=== PATIENT | female | born 1955 | race Caucasian/White ===

== ENCOUNTER 2018-07-02 09:50 | Emergency (ER) | payer SELFPAY ==
[~2018-07-02] VITALS: Ht 167.6 cm; Wt 122.5 kg
[2018-07-02] MEDS ORDERED: ASPIRIN 81 MG CHEW TAB PO STA (10:58)
[2018-07-02] MEDS ORDERED: CLONIDINE HCL 0.2 MG TAB PO ONE (11:00)
[2018-07-02 12:05] LABS: BILIRUBIN,URINE NEGATIVE (NEGATIVE); CLARITY,URINE SL CLOUDY (CLEAR); COLOR,URINE YELLOW (YELLOW); KETONES,URINE NEGATIVE (NEGATIVE); LEUKOCYTE ESTERASE ,URINE NEGATIVE (NEGATIVE); NITRITE,URINE NEGATIVE (NEGATIVE); PROTEIN,URINE DIPSTICK 1+ (NEGATIVE); URINE UROBILINOGEN 0.2 mg/dL (0.2 - 1)
[2018-07-02 12:19] LABS: BACTERIA,URINE MODERATE /HPF; EPITHELIAL CELLS,URINE MODERATE /LPF; TRANSITIONAL EPI CELLS,URINE FEW
--- NOTE | 2018-07-02 12:34 | Diagnostic Imaging Report ---
EXAM: XR CHEST 1 VIEW DATE: 07/02/2018 10:58 AM INDICATION: Cough COMPARISON: None FINDINGS: Lines and Tubes: None Heart and Mediastinum: No acute cardiomediastinal findings. Lungs and Pleura: No significant pleural effusion, pneumothorax, or focal consolidation. Minimal opacities in the lung bases statistically represent atelectasis, however, infectious process could have a similar appearance. Bones and Soft Tissues: No acute findings. IMPRESSION: 1. No acute cardiopulmonary findings. Signed by: Dr. Parth Tapia MD on 07/02/2018 12:31 PM
[2018-07-02 13:13] LABS: BASOPHILS % 0.5 % (0.0-1.0); EOSINOPHILS # (AUTO) 0.2 (0.0-0.4); EOSINOPHILS % 2.6 % (0.0-6.0); HEMATOCRIT 48.1 % (34.2-44.1); HEMOGLOBIN 15.7 g/dL (12.0-16.0); LYMPHOCYTES # (AUTO) 1.7 (1.0-3.2); LYMPHOCYTES % 20.8 % (18.0-39.1); MEAN CORPUSCULAR HEMOGLOBIN 28.6 pg (28-32); MEAN CORPUSCULAR HGB CONC 32.6 g/dL (31-35); MEAN CORPUSCULAR VOLUME 87.6 fL (81-99); MONOCYTES # (AUTO) 0.5 (0.2-0.8); MONOCYTES % 6.3 % (4.4-11.3); NEUTROPHILS # (AUTO) 5.6 (2.1-6.9); NEUTROPHILS % 69.2 % (38.7-80.0); PLATELET COUNT 126 x10e3/uL (140-360); RED BLOOD COUNT 5.49 x10e6/uL (3.6-5.1); RED CELL DISTRIBUTION WIDTH 14.7 % (11.7-14.4)
[2018-07-02 13:22] LABS: INR 0.93; PROTHROMBIN TIME 13.3 seconds (11.9-14.5)
[2018-07-02 13:23] LABS: PARTIAL THROMBOPLASTIN TIME 26.7 seconds (23.8-35.5)
[2018-07-02 13:31] LABS: ALBUMIN 3.4 g/dL (3.5-5.0); ALBUMIN/GLOBULIN RATIO 1.2 (0.8-2.0); ANION GAP 12.8 mmol/L (8-16); CALCIUM 8.8 mg/dL (8.4-10.2); CREATININE, SERUM 1.1 mg/dL (0.57-1.11); MAGNESIUM 1.7 MG/DL (1.3-2.1); POTASSIUM 3.8 mmol/L (3.5-5.1)
[2018-07-02 13:43] LABS: CREATINE KINASE MB 2.5 ng/mL (0-5.0)
[2018-07-02] MEDS ORDERED: HYDRALAZINE HCL 20 MG/ML VIAL IV ONE (13:53)
[2018-07-02] MEDS ORDERED: CEFTRIAXONE SOD 1 GM VIAL IV ONE (14:00)
[2018-07-02] MEDS ORDERED: KEFLEX500 MG PO (14:03)
[2018-07-02] MEDS ORDERED: HYDROCHLOROTHIA25 MG PO (14:04)
[2018-07-02 15:38] VITALS: BP 163/106
[2018-09-18] MEDS ORDERED: LOPRESSOR25 MG PO (07:02)
[2018-09-18] MEDS ORDERED: CEFUROXIME250 MG PO (07:02)
[2018-09-18] MEDS ORDERED: LORATADINE10 MG PO (07:02)
[2018-09-18] MEDS ORDERED: FAMOTIDINE20 MG PO (07:02)
[2018-09-18] MEDS ORDERED: PREDNISONE20 MG PO (07:02)
[2018-09-18] MEDS ORDERED: Guaifenesin/Dextromethorphan NG (07:02)
[2018-09-18] MEDS ORDERED: NICODERM CQ1 EAC1 TOP (07:02)
[2018-09-18] MEDS ORDERED: NIFEDIPINE ER30 M1 PO (07:02)
[2018-09-18] MEDS ORDERED: HYDRALAZINE HCL25 MG PO (07:02)
[2018-09-18] MEDS ORDERED: TESSALON PERLE100 MG PO (07:02)
[2018-09-18] MEDS ORDERED: PROAIR HFA INH8.5 GM INH (07:04)
== END 2018-07-02 15:39 | disposition home or self-care (01) ==
LOC: ER 09:50
DX: N30.01 Acute cystitis with hematuria (principal); R05 Cough; I10 Essential (primary) hypertension; T46.5X6A Underdosing of other antihypertensive drugs, initial encounter; Z91.120 Patient's intentional underdosing of medication regimen due to financial hardship; J44.9 Chronic obstructive pulmonary disease, unspecified; E66.9 Obesity, unspecified; Z68.41 Body mass index [BMI] 40.0-44.9, adult; J43.9 Emphysema, unspecified; F17.210 Nicotine dependence, cigarettes, uncomplicated
CPT/HCPCS: 36415; 71045; 80053; 81001; 82550; 82553; 83735; 83880; 84484; 85025; 85610; 85730; 93005; 99284; J0360; J0696

== ENCOUNTER 2018-08-30 12:54 | Inpatient (IN) | payer SELFPAY ==
[~2018-08-30] VITALS: Ht 167.6 cm; Wt 121.1 kg
[2018-08-30] VITALS (15 sets, daily range): BP systolic 148–207; BP diastolic 79–131
[~2018-08-30 12:54] MED LIST: HYDROCHLOROTHIA25 MG PO; KEFLEX500 MG PO
--- OUTSIDE RECORDS SUMMARY | 2018-08-30 12:57 | XMS REPORT ---
Author Author [facility], [place] Address Unknown Phone Unavailable Care Team Providers Care Turbo Electric Operator Name Role Phone Sharon CARMONA Unavailable Unavailable Problems This patient has no known problems. Allergies, Adverse Reactions, Alerts This patient has no known allergies or adverse reactions. Medications This patient has no known medications. Results Test Description Test Time Test Comments Text Results Atomic Results Result Comments CHEST SINGLE (NOT PORTABLE) 2018-07-02 12:31:00 [place] [id number] Patient Name: SHAE ROMERO MR #: [id number] : 1955 Age/Sex: 62/F Req #: [id number] Adm Physician: Ordered by: TYLOR WINCHESTER BOILER/CHILLER TECHNICIAN Report #: [id number] Location: ER Room/Bed: Procedure: [id number] DX/CHEST SINGLE (NOT PORTABLE) Exam Date: 07/02/18 Exam Time: 1148 REPORT STATUS: Signed EXAM: XR CHEST 1 VIEW DATE: 07/02/2018 10:58 AM INDICATION: Cough COMPARISON: None FINDINGS: Lines and Tubes: None Heart and Mediastinum: No acute cardiomediastinal findings. Lungs and Pleura: No significant pleural effusion, pneumothorax, or focal consolidation. Minimal opacities in the lung bases statistically represent atelectasis, however, infectious process could have a similar appearance. Bones and Soft Tissues: No acute findings. IMPRESSION: 1. No acute cardiopulmonary findings. Signed by: Dr. Parth Tapia MD on 07/02/2018 12:31 PM Dictated By: PARTH TAPIA MD 1231 Transcribed By: JERMAINE on 07/02/18 1231 COPY TO: TYLOR WINCHESTER NP
[2018-08-30] MEDS ORDERED: ASPIRIN 81 MG CHEW TAB PO ONE (13:15)
[2018-08-30] MEDS ORDERED: HYDRALAZINE HCL 20 MG/ML VIAL IV ONE ×2 (13:30→16:00)
[2018-08-30 13:46] LABS: BASOPHILS % 0.4 % (0.0-1.0); EOSINOPHILS # (AUTO) 0.1 (0.0-0.4); EOSINOPHILS % 1.5 % (0.0-6.0); HEMOGLOBIN 14.7 g/dL (12.0-16.0); LYMPHOCYTES # (AUTO) 1.5 (1.0-3.2); LYMPHOCYTES % 18.5 % (18.0-39.1); MEAN CORPUSCULAR HEMOGLOBIN 29.1 pg (28-32); MEAN CORPUSCULAR VOLUME 90.9 fL (81-99); MONOCYTES # (AUTO) 0.4 (0.2-0.8); MONOCYTES % 4.5 % (4.4-11.3); NEUTROPHILS % 74.2 % (38.7-80.0); PLATELET COUNT 115 x10e3/uL (140-360); RED BLOOD COUNT 5.06 x10e6/uL (3.6-5.1); RED CELL DISTRIBUTION WIDTH 15.5 % (11.7-14.4)
--- NOTE | 2018-08-30 13:48 | Diagnostic Imaging Report ---
EXAM: XR CHEST 1 VIEW DATE: 08/30/2018 1:01 PM INDICATION: Shortness of breath COMPARISON: 07/02/2018, no report available FINDINGS: Lines and Tubes: None Heart and Mediastinum: No acute cardiomediastinal findings. Lungs and Pleura: Evaluation limited by body habitus, underpenetration. Mild opacities with probable effusions. Bones and Soft Tissues: No acute findings. IMPRESSION: 1. Basilar atelectasis versus pneumonia with probable edema/effusions. Suboptimal exam limits evaluation. 2. Ill-defined opacity right peritracheal region likely confluent vascular structures. Signed by: Dr. Parth Tapia MD on 08/30/2018 1:45 PM
[2018-08-30] MEDS ORDERED: CEFTRIAXONE SOD 1 GM VIAL IV SCH (14:00)
[2018-08-30] MEDS ORDERED: AZITHROMYCIN 500MG/SOD CHL 0.9% 250ML BAG IV SCH (14:00)
[2018-08-30] MEDS ORDERED: LEVOFLOXACIN 750MG/DEXTROSE PREMIX BAG 150ML IV SCH (14:00)
[2018-08-30 14:03] LABS: INR 0.95; PARTIAL THROMBOPLASTIN TIME 26.9 seconds (23.8-35.5); PROTHROMBIN TIME 13.6 seconds (11.9-14.5)
[2018-08-30 14:12] LABS: ALBUMIN 3.4 g/dL (3.5-5.0); ALBUMIN/GLOBULIN RATIO 1.2 (0.8-2.0); ANION GAP 13.9 mmol/L (8-16); CALCIUM 8.6 mg/dL (8.4-10.2); CLARITY,URINE HAZY (CLEAR); COLOR,URINE YELLOW (YELLOW); CREATININE, SERUM 1.2 mg/dL (0.57-1.11); KETONES,URINE NEGATIVE (NEGATIVE); LEUKOCYTE ESTERASE ,URINE TRACE (NEGATIVE); NITRITE,URINE NEGATIVE (NEGATIVE); POTASSIUM 3.9 mmol/L (3.5-5.1); PROTEIN,URINE DIPSTICK 1+ (NEGATIVE)
[2018-08-30 14:13] LABS: BILIRUBIN,URINE NEGATIVE (NEGATIVE); URINE UROBILINOGEN 1 mg/dL (0.2 - 1)
[2018-08-30 14:14] LABS: WBC,URINE (MAN) 0-5 /HPF (0-5)
[2018-08-30 14:15] LABS: BACTERIA,URINE FEW /HPF; EPITHELIAL CELLS,URINE FEW /LPF
[2018-08-30 14:21] LABS: CREATINE KINASE MB 3.3 ng/mL (0-5.0)
[2018-08-30] MEDS ORDERED: AZITHROMYCIN 500MG/NS 250 ML 250 ML IV SCH (14:30)
[2018-08-30] MEDS: CEFTRIAXONE SOD 1 GM VIAL IV SCH (14:49)
[2018-08-30] MEDS: IPRATROPIUM BROMIDE 0.02% 2.5 ML NEB NEB SCH ×2 (15:03→22:31)
[2018-08-30] MEDS: ALBUTEROL SULF 0.083% NEB SOLN 3 ML NEB NEB SCH ×3 (15:03→22:31)
[2018-08-30] MEDS ORDERED: ALBUTEROL/IPRATROPIUM 3 ML NEB NEB ONE (15:15)
[2018-08-30] MEDS ORDERED: DILTIAZEM HCL 5 MG/ML 5 ML VIAL IV ONE ×2 (16:00→18:30)
[2018-08-30] MEDS: LEVOFLOXACIN 750MG/D5W 150ML 150 ML IV SCH (16:56)
[2018-08-30] MEDS ORDERED: NITROGLYCERIN/D5W 200 MCG/ML 250 ML IV PRN (17:45)
[2018-08-30] MEDS ORDERED: HYDROMORPHONE 2MG/ML 2 MG/ML ML IV ONE (18:00)
[2018-08-30] MEDS ORDERED: FUROSEMIDE INJ 10 MG/ML 4 ML VIAL IV ONE (18:15)
[2018-08-30] MEDS ORDERED: ALBUTEROL0.63 MG/3 IH (20:32)
[2018-08-30] MEDS: HYDRALAZINE HCL 20 MG/ML VIAL IV PRN (21:25)
[2018-08-30] MEDS: ACETAMINOPHEN 325 MG TAB PO PRN (21:25)
[2018-08-30 23:49] LABS: CREATINE KINASE MB 2.6 ng/mL (0-5.0)
[2018-08-31] VITALS (54 sets, daily range): BP systolic 133–205; BP diastolic 61–120
[2018-08-31] MEDS: HYDRALAZINE HCL 20 MG/ML VIAL IV PRN ×3 (01:31→17:33)
[2018-08-31] MEDS: ALBUTEROL SULF 0.083% NEB SOLN 3 ML NEB NEB SCH ×6 (03:08→23:07)
[2018-08-31] MEDS: IPRATROPIUM BROMIDE 0.02% 2.5 ML NEB NEB SCH ×3 (08:15→19:15)
[2018-08-31] MEDS: ACETAMINOPHEN 325 MG TAB PO PRN (08:21)
[2018-08-31] MEDS: AMLODIPINE BESYLATE 5 MG TAB PO SCH (11:18)
[2018-08-31] MEDS: METOPROLOL TARTRATE 25 MG TAB PO SCH ×2 (11:18→17:33)
--- NOTE | 2018-08-31 13:32 | Consultation ---
DATE OF CONSULTATION: CARDIOLOGY CONSULTATION REASON FOR CONSULTATION: Hypertension. CONSULTING PHYSICIAN: Dr. Velazquez. HISTORY OF PRESENT ILLNESS: Ms. Martinez is a 62-year-old female who states that she came into the ER after worsening shortness of breath, cough, and also weakness for the last 2 weeks. She states that she was actually in the ER 2 weeks ago; however, these problems were not as bothersome as they are today. During that ER visit, she was treated for hypertensive urgency. She remains to be quite hypertensive this morning and states that nitro IV titration is causing her diaphragmatic spasms and discomfort in her chest. She endorses smoking and also poor compliance to her recommended therapy for COPD and also hypertension. She states that all of this is due to being unable to afford medications and she had nothing to take for quite a while now. She is requesting to be discharged on medications that she is able to afford. She denies any chest pain at the moment. Denies any fever, chills, dizziness, syncope, dysuria, or abdominal discomfort. REVIEW OF SYSTEMS: Negative except as mentioned above. PAST MEDICAL HISTORY: Includes pneumonia, COPD, hypertension. PAST SURGICAL HISTORY: Left heart cath 3-4 years ago with mild coronary artery disease reported by patient, heart enlargement, left knee replacement, and tubal ligation. SOCIAL HISTORY: Smoker with occasional alcohol intake. No illicit drug use. PHYSICAL EXAMINATION VITAL SIGNS: Temperature not recorded, pulse 80, respiratory rate 18, blood pressure 182/99, oxygen saturation 97% on 2 liters nasal cannula. GENERAL: Alert and oriented x3, resting comfortably in bed, does not appear to be in any acute distress. NECK: Supple. No JVD noted. LUNGS: Diminished breath sounds throughout. CARDIOVASCULAR: Regular rate and rhythm. Normal S1, S2. No S3 or S4 auscultated. ABDOMEN: Soft, nontender. EXTREMITIES: Lower extremities, trace edema and 2+ pedal pulses. CARDIOVASCULAR MEDICATIONS 1. Hydralazine 10 mg IV q.4 hours p.r.n. 2. Nitro IV titrate. LABS: On admission, WBC 8.07, hemoglobin 14.7, hematocrit 46.0, platelets 115. Sodium 141, potassium 3.9, BUN 20, creatinine 1.20, GFR 45, AST 32, ALT 40. CK-MB 3, troponin 0.042, creatinine kinase 71. IMAGING: Chest x-ray with ill-defined opacity in the right paratracheal region, likely confluent vascular structure, basilar atelectasis versus pneumonia. IMPRESSION 1. Renal insufficiency. 2. Hypertensive urgency. 3. Coronary artery disease with mild disease noted 3 years ago per patient. 4. Medical noncompliance. 5. Smoker. 6. Chronic obstructive pulmonary disease. 7. Pneumonia. RECOMMENDATIONS: Medications to be adjusted for better blood pressure control. Echocardiogram ordered, awaiting completion. Maintain patient on telemetry. We will transition to medications on [facility] $4 drug list for hypertension. Medical compliance discussion held extensively. Smoking cessation encouraged. Continue treatment of pneumonia and antimicrobial therapy per primary team. We will continue to monitor this patient very closely. Thank you for this consultation and allowing us to participate in this patient's care. Dictated by: Lori Durham NP Job#: [id number] PKU
[2018-08-31] MEDS: CEFTRIAXONE SOD 1 GM VIAL IV SCH (14:40)
[2018-08-31] MEDS: HYDROCHLOROTHIAZIDE 25 MG TAB PO SCH (14:40)
--- NOTE | 2018-08-31 15:13 | History and Physical ---
PRIMARY CARE PHYSICIAN: Patient has no local PCP. CHIEF COMPLAINT: Shortness of breath and COPD. HISTORY OF PRESENT ILLNESS: Ms. Martinez is a 62-year-old lady presenting with about 2 weeks of worsening shortness of breath, hacking cough producing some sputum and wheezing. REVIEW OF SYSTEMS: She denies fever, chills, or weight loss. She denies sinus congestion or sore throat. She denies chest pain or palpitation. She has shortness of breath, wheezing, and hacking cough. She denies abdominal pain, nausea, vomiting, or melena. She denies dysuria or flank pain. She denies rash or pruritus. She denies joint pain or swelling. She denies headache, vertigo, or loss of consciousness. She denies depression, agitation, homicidal or suicidal ideation. PAST MEDICAL HISTORY: Significant for hypertension, COPD and CKD 3. The patient has not seen a doctor. She is not taking her blood pressure medicine, does not know which she supposed to be on. Has not seen a doctor in months due to finances. She does have a history of left total knee replacement and she is a chronic daily smoker. She does not know what her medications are. FAMILY HISTORY: Significant for hypertension. SOCIAL HISTORY: Patient is . Romanian is her primary language. She is a current daily smoker. She drinks occasionally. She does not use illegal drugs and she is generally independently functioning. PHYSICAL EXAM PSYCHIATRIC: She is awake, alert and oriented x3 with normal mood and affect. CONSTITUTIONAL: She is morbidly obese with a BMI of 42.7. She is in no acute distress. VITAL SIGNS: Blood pressure initially 208/118, currently 142/76; pulse initially 80, currently 68; respiratory rate 18; O2 sat 98% on 2 liter nasal cannula; temperature 98.7. HEENT: Her head is atraumatic. Her eyes are anicteric with clear conjunctivae. Ears and nares are without erythema or discharge. Oropharynx is clear. NECK: Supple with no mass or thyromegaly. LYMPHATIC: She has no palpable cervical, axillary, or inguinal adenopathy. CARDIOVASCULAR: Her heart has regular rate rhythm without murmur or extra sounds. She has no carotid bruit. She has no peripheral edema. She has palpable dorsal pedal pulses. RESPIRATORY: Lungs reveal somewhat diminished breath sounds with some expiratory wheezing and hacking cough. GASTROINTESTINAL: Abdomen is soft without organomegaly, masses, or tenderness. She has normal bowel sounds present. CUTANEOUS: Her skin is warm and dry to touch with no rash or skin breakdown. MUSCULOSKELETAL: Her joints are normal alignment without erythema or swelling. She has no calf tenderness. NEUROLOGIC: Nonfocal with intact cranial nerves and no motor or sensory deficits. DIAGNOSTIC STUDIES: Chest x-ray shows bibasilar opacities. Her UA is clear. Lactic acid 10.3. Troponin 0.042, 0.021, 0.019. BNP 954.3. Her chemistry shows normal electrolytes, CO2 of 28, creatinine 1.2, BUN 20 for a GFR of 45 which is about her baseline, calcium is 8.6, glucose 184. Transaminases, bilirubin, and alk phos are normal. CBC shows a white count of 8.0 with 74% neutrophils, 19% lymphocytes, hemoglobin 14.7, hematocrit 46.0, and platelet count of 115,000. IMPRESSION AND PLAN 1. Hypertensive urgency. The patient was admitted to the ICU on a nitroglycerin drip, which has now been weaned off after starting p.o. Norvasc, lisinopril, metoprolol, and hydrochlorothiazide, which is brought her blood pressure under fair control. 2. Bibasilar pneumonia. Patient was started on IV Levaquin. 3. Acute exacerbation of chronic obstructive pulmonary disease. Patient will be getting O2 and aggressive neb treatments. 4. Morbid obesity. Patient counseled on low glycemic diet. 5. Chronic kidney disease stage 3. Will continue to monitor renal function. 6. For prophylaxis, the patient is on Lovenox and Pepcid. Job#: [id number] ILEANA
[2018-08-31] MEDS: LEVOFLOXACIN 750MG/D5W 150ML 150 ML IV SCH (15:42)
[2018-08-31] MEDS: ENOXAPARIN SOD INJ 40 MG/0.4 ML SYR SC SCH (17:33)
[2018-08-31] MEDS: FAMOTIDINE 20 MG TAB PO SCH (17:33)
[2018-09-01] VITALS (7 sets, daily range): BP systolic 127–194; BP diastolic 60–98
[2018-09-01] MEDS: HYDRALAZINE HCL 20 MG/ML VIAL IV PRN (01:15)
[2018-09-01] MEDS: IPRATROPIUM BROMIDE 0.02% 2.5 ML NEB NEB SCH ×4 (02:15→20:14)
[2018-09-01] MEDS: ALBUTEROL SULF 0.083% NEB SOLN 3 ML NEB NEB SCH ×6 (02:15→23:00)
[2018-09-01] MEDS ORDERED: ACETAMINOPHEN/CODEINE 300MG - 30MG TAB PO ONE (05:15)
[2018-09-01 05:16] LABS: BASOPHILS % 0.4 % (0.0-1.0); EOSINOPHILS # (AUTO) 0.2 (0.0-0.4); EOSINOPHILS % 2.5 % (0.0-6.0); HEMATOCRIT 42.7 % (34.2-44.1); HEMOGLOBIN 13.8 g/dL (12.0-16.0); LYMPHOCYTES # (AUTO) 1.5 (1.0-3.2); LYMPHOCYTES % 20.4 % (18.0-39.1); MEAN CORPUSCULAR HEMOGLOBIN 29.4 pg (28-32); MEAN CORPUSCULAR HGB CONC 32.3 g/dL (31-35); MONOCYTES # (AUTO) 0.5 (0.2-0.8); MONOCYTES % 7.2 % (4.4-11.3); NEUTROPHILS # (AUTO) 5.1 (2.1-6.9); PLATELET COUNT 119 x10e3/uL (140-360); RED BLOOD COUNT 4.69 x10e6/uL (3.6-5.1)
[2018-09-01 05:45] LABS: ANION GAP 14.6 mmol/L (8-16); CREATININE, SERUM 1.19 mg/dL (0.57-1.11); POTASSIUM 3.6 mmol/L (3.5-5.1)
[2018-09-01 06:10] LABS: THYROID STIMULATING HORMONE 1.25 uIU/mL (0.350-4.940)
[2018-09-01] MEDS: FAMOTIDINE 20 MG TAB PO SCH ×2 (08:05→17:56)
[2018-09-01] MEDS ORDERED: LISINOPRIL 20 MG TAB PO SCH (09:00)
[2018-09-01] MEDS: METOPROLOL TARTRATE 25 MG TAB PO SCH ×2 (09:22→17:56)
[2018-09-01] MEDS: AMLODIPINE BESYLATE 5 MG TAB PO SCH (09:22)
[2018-09-01] MEDS: HYDROCHLOROTHIAZIDE 25 MG TAB PO SCH (09:22)
[2018-09-01] MEDS ORDERED: NIFEDIPINE CR 30 MG TAB PO SCH (10:00)
[2018-09-01] MEDS ORDERED: POTASSIUM CHLORIDE 20 MEQ TAB CR PO STA (10:05)
[2018-09-01] MEDS ORDERED: FUROSEMIDE INJ 10 MG/ML 4 ML VIAL IV ONE (10:15)
--- NOTE | 2018-09-01 12:51 | Progress Note ---
DATE: CARDIOLOGY PROGRESS NOTE SUBJECTIVE: Patient feeling overall better. Denies any chest pain. Mild shortness of breath and cough. OBJECTIVE VITAL SIGNS: Temperature 96.3, heart rate 71, respirations 18, blood pressure 175/81, oxygen saturation 97% on room air. GENERAL: A well-appearing, obese woman in no apparent distress. CARDIOVASCULAR: Regular rate and rhythm. LUNGS: Diminished breath sounds at bases. Scattered rhonchi. ABDOMEN: Soft, nontender. EXTREMITIES: Trace edema. VASCULAR: Diminished pulses. MEDICATIONS: Reviewed. LABORATORY DATA: Reviewed. Hemoglobin 13.8. Creatinine is 1.19. Troponins are negative x3. BNP is 348. IMPRESSION 1. Hypertensive urgency. 2. Mild nonobstructive coronary artery disease. 3. Medical noncompliance. 4. Tobacco abuse. 5. Chronic obstructive pulmonary disease. 6. Pneumonia. RECOMMENDATIONS: The patient's blood pressure remains elevated. Will ensure adequate blood pressure control with medications that she can afford. Will change nifedipine to amlodipine due to cost. Otherwise, can increase lisinopril to 40 mg daily for better blood pressure control. Will review the echocardiogram once it has been resulted. There is no evidence of acute coronary syndrome as her troponins are within normal limits. Job#: [id number]
[2018-09-01] MEDS: AMLODIPINE BESYLATE 10 MG TAB PO SCH (13:52)
[2018-09-01] MEDS: CEFTRIAXONE SOD 1 GM VIAL IV SCH (13:53)
[2018-09-01] MEDS: ENOXAPARIN SOD INJ 40 MG/0.4 ML SYR SC SCH (17:00)
[2018-09-01] MEDS: LEVOFLOXACIN 750MG/D5W 150ML 150 ML IV SCH (17:56)
[2018-09-01] MEDS: GUAIFENESIN 600MG/DEXTROMETHORPHAN 30MG TABSR PO SCH (17:57)
[2018-09-01] MEDS: ACETAMINOPHEN 325 MG TAB PO PRN (20:40)
[2018-09-02] VITALS: BP 112/53
[2018-09-02] MEDS: IPRATROPIUM BROMIDE 0.02% 2.5 ML NEB NEB SCH ×2 (01:00→07:17)
[2018-09-02 03:00] LABS: BASOPHILS % 0.3 % (0.0-1.0); EOSINOPHILS # (AUTO) 0.3 (0.0-0.4); EOSINOPHILS % 3.4 % (0.0-6.0); HEMATOCRIT 42.4 % (34.2-44.1); HEMOGLOBIN 13.6 g/dL (12.0-16.0); LYMPHOCYTES # (AUTO) 1.8 (1.0-3.2); LYMPHOCYTES % 24.7 % (18.0-39.1); MEAN CORPUSCULAR HEMOGLOBIN 29.2 pg (28-32); MEAN CORPUSCULAR HGB CONC 32.1 g/dL (31-35); MEAN CORPUSCULAR VOLUME 91.2 fL (81-99); MONOCYTES # (AUTO) 0.6 (0.2-0.8); MONOCYTES % 8.7 % (4.4-11.3); NEUTROPHILS # (AUTO) 4.5 (2.1-6.9); NEUTROPHILS % 62.4 % (38.7-80.0); PLATELET COUNT 116 x10e3/uL (140-360); RED BLOOD COUNT 4.65 x10e6/uL (3.6-5.1)
[2018-09-02] MEDS: ALBUTEROL SULF 0.083% NEB SOLN 3 ML NEB NEB SCH ×3 (03:00→11:00)
[2018-09-02 03:14] LABS: ANION GAP 14.3 mmol/L (8-16); CALCIUM 9.1 mg/dL (8.4-10.2); CREATININE, SERUM 1.42 mg/dL (0.57-1.11); MAGNESIUM 2.1 MG/DL (1.3-2.1); POTASSIUM 4.3 mmol/L (3.5-5.1)
[2018-09-02 04:00] VITALS: BP 197/86
[2018-09-02] MEDS: HYDRALAZINE HCL 20 MG/ML VIAL IV PRN (05:25)
[2018-09-02] MEDS: ACETAMINOPHEN 325 MG TAB PO PRN (05:45)
[2018-09-02 06:32] VITALS: BP 164/82
[2018-09-02] MEDS: FAMOTIDINE 20 MG TAB PO SCH (07:30)
[2018-09-02 07:51] VITALS: BP 151/66
[2018-09-02] MEDS ORDERED: LISINOPRIL 20 MG TAB PO SCH (09:00)
[2018-09-02] MEDS: HYDROCHLOROTHIAZIDE 25 MG TAB PO SCH (09:05)
[2018-09-02] MEDS: GUAIFENESIN 600MG/DEXTROMETHORPHAN 30MG TABSR PO SCH (09:05)
[2018-09-02] MEDS: AMLODIPINE BESYLATE 10 MG TAB PO SCH (09:06)
[2018-09-02] MEDS: METOPROLOL TARTRATE 25 MG TAB PO SCH (09:06)
[2018-09-02] MEDS ORDERED: ALBUTEROL0.63 MG/3 IH (09:39)
[2018-09-02] MEDS ORDERED: NORVASC10 MG PO (09:39)
[2018-09-02] MEDS ORDERED: LISINOPRIL20 MG PO (09:39)
[2018-09-02] MEDS ORDERED: MUCINEX DM ER1 EACH PO (09:39)
[2018-09-02] MEDS ORDERED: ESIDRIX25 MG PO (09:39)
[2018-09-02] MEDS ORDERED: LOPRESSOR25 MG PO (09:39)
[2018-09-02] MEDS ORDERED: LEVAQUIN500 MG PO (09:39)
[2018-09-02 10:47] VITALS: BP 151/66
[2018-09-02 11:32] VITALS: BP 138/63
[2018-09-02] MEDS ORDERED: CEFTRIAXONE SOD 1 GM/NS 50 ML 50 ML IV SCH (14:00)
--- NOTE | 2018-09-02 14:43 | Discharge Summary ---
ADMITTING DIAGNOSES 1. Hypertensive urgency. 2. Bibasilar pneumonia. 3. Acute exacerbation of chronic obstructive pulmonary disease. 4. Morbid obesity. 5. Chronic kidney disease, stage 3. DISCHARGE DIAGNOSES 1. Hypertensive urgency. 2. Bibasilar pneumonia. 3. Acute exacerbation of chronic obstructive pulmonary disease. 4. Morbid obesity. 5. Chronic kidney disease, stage 3. HISTORY: The patient has a history of hypertension, COPD, CKD-3. Surgical history of left total knee replacement. SOCIAL HISTORY: The patient smokes daily and drinks occasionally. HOSPITAL COURSE: This 62-year-old female presents with about 2 weeks of worsening shortness of breath, hacking cough producing sputum and wheezing. She is also not taking her blood pressure medicine due to finances. She is not even sure which medicine she should be on. On admission, the patient was admitted to the ICU on a nitroglycerin drip. Blood pressure was 108/118 on admission. The patient was weaned off and started on Norvasc, lisinopril, metoprolol, and hydrochlorothiazide. She was started on IV Levaquin, Mucinex and nebs for pneumonia. Chest x-ray showed bibasilar atelectasis versus pneumonia with probable edema/effusions, ill-defined opacity right peritracheal region likely confluent vascular structures. Echo showed EF of 50% to 55% preliminary. EKG showed normal sinus rhythm. Cardiology was consulted, who agreed with blood pressure meds as they are on the $4 drug list from [facility]. Blood cultures were negative. Vital signs were under control with the Norvasc, hydrochlorothiazide, lisinopril and metoprolol. The patient will discharge home on these medicines plus Levaquin and Mucinex. She will follow up with primary care in 1 to 2 weeks and with cardiology as discussed. Vital signs are stable. The patient is afebrile. The patient understands the discharge instructions and agrees to the plan. Dictated by: Suzie Mann NP MAURICE HOANG MD Job#: [id number]
[2018-09-18] MEDS ORDERED: CEFUROXIME250 MG PO (07:02)
[2018-09-18] MEDS ORDERED: HYDRALAZINE HCL25 MG PO (07:02)
[2018-09-18] MEDS ORDERED: LORATADINE10 MG PO (07:02)
[2018-09-18] MEDS ORDERED: NICODERM CQ1 EAC1 TOP (07:02)
[2018-09-18] MEDS ORDERED: LOPRESSOR25 MG PO (07:02)
[2018-09-18] MEDS ORDERED: NIFEDIPINE ER30 M1 PO (07:02)
[2018-09-18] MEDS ORDERED: Guaifenesin/Dextromethorphan NG (07:02)
[2018-09-18] MEDS ORDERED: FAMOTIDINE20 MG PO (07:02)
[2018-09-18] MEDS ORDERED: TESSALON PERLE100 MG PO (07:02)
[2018-09-18] MEDS ORDERED: PREDNISONE20 MG PO (07:02)
[2018-09-18] MEDS ORDERED: PROAIR HFA INH8.5 GM INH (07:04)
== END 2018-09-02 11:57 | disposition home or self-care (01) | DRG 190 ==
LOC: ER 12:54 → ERHOLD 13:56 → OBSVTOIN 17:46 → ICU 20:19 → MED/SURG3 08-31 15:11
PROVIDERS: ADMIT Internal Medicine; ATTEND Internal Medicine
DX: J44.0 Chronic obstructive pulmonary disease with (acute) lower respiratory infection (principal); J18.9 Pneumonia, unspecified organism; Z68.41 Body mass index [BMI] 40.0-44.9, adult; I16.0 Hypertensive urgency; J44.1 Chronic obstructive pulmonary disease with (acute) exacerbation; I12.9 Hypertensive chronic kidney disease with stage 1 through stage 4 chronic kidney disease, or unspecified chronic kidney disease; N18.3 Chronic kidney disease, stage 3 (moderate); I25.10 Atherosclerotic heart disease of native coronary artery without angina pectoris; F17.210 Nicotine dependence, cigarettes, uncomplicated; Z91.19 Patient's noncompliance with other medical treatment and regimen; E66.01 Morbid (severe) obesity due to excess calories; R06.6 Hiccough
CPT/HCPCS: 36415; 71045; 80048; 80053; 81001; 82550; 82553; 83036; 83605; 83735; 83880; 84443; 84484; 85025; 85610; 85730; 87040; 93005; 93306; 94640; 96374; 96376; 99284; J0360; J0456; J0696; J1650; J1940

== ENCOUNTER 2018-09-14 17:03 | Inpatient (IN) | payer SELFPAY ==
[~2018-09-14] VITALS: Ht 167.6 cm; Wt 117.7 kg
[2018-09-14] MEDS: ALBUTEROL SULF 0.083% NEB SOLN 3 ML NEB NEB SCH (00:04)
[~2018-09-14 17:03] MED LIST changes: +ALBUTEROL0.63 MG/3 IH; +ESIDRIX25 MG PO; +LEVAQUIN500 MG PO; +LISINOPRIL20 MG PO; +LOPRESSOR25 MG PO; +MUCINEX DM ER1 EACH PO; +NORVASC10 MG PO
[2018-09-14] MEDS ORDERED: SODIUM CHLORIDE 0.9% 1000ML 1,000 ML IV STA (17:18)
[2018-09-14] MEDS ORDERED: IPRATROPIUM BROMIDE 0.02% 2.5 ML NEB NEB STA (17:18)
[2018-09-14] MEDS ORDERED: CEFTRIAXONE SOD 1 GM VIAL IV SCH (17:30)
[2018-09-14 17:53] LABS: BASOPHILS % 0.2 % (0.0-1.0); EOSINOPHILS # (AUTO) 0.3 (0.0-0.4); EOSINOPHILS % 3.4 % (0.0-6.0); HEMATOCRIT 48.4 % (34.2-44.1); HEMOGLOBIN 15.4 g/dL (12.0-16.0); LYMPHOCYTES # (AUTO) 0.9 (1.0-3.2); LYMPHOCYTES % 10.1 % (18.0-39.1); MEAN CORPUSCULAR HEMOGLOBIN 29.1 pg (28-32); MEAN CORPUSCULAR HGB CONC 31.8 g/dL (31-35); MEAN CORPUSCULAR VOLUME 91.5 fL (81-99); MONOCYTES # (AUTO) 0.7 (0.2-0.8); MONOCYTES % 7.6 % (4.4-11.3); NEUTROPHILS # (AUTO) 7.2 (2.1-6.9); NEUTROPHILS % 78.4 % (38.7-80.0); PLATELET COUNT 135 x10e3/uL (140-360); RED BLOOD COUNT 5.29 x10e6/uL (3.6-5.1); RED CELL DISTRIBUTION WIDTH 15.1 % (11.7-14.4)
[2018-09-14] MEDS ORDERED: CEFTRIAXONE SOD 1 GM/NS 50 ML 50 ML IV ONE ×2 (18:00→23:27)
[2018-09-14] MEDS ORDERED: AZITHROMYCIN 500MG/NS 250 ML 250 ML IV ONE (18:00)
[2018-09-14] MEDS ORDERED: ALBUTEROL SULF 0.083% NEB SOLN 3 ML NEB NEB ONE (18:00)
[2018-09-14] MEDS ORDERED: METHYLPREDNISOLONE SOD SUCC 125 MG/2ML VIAL IV ONE (18:00)
[2018-09-14 18:02] LABS: PROTHROMBIN TIME 14.1 seconds (11.9-14.5)
[2018-09-14 18:03] LABS: PARTIAL THROMBOPLASTIN TIME 27.6 seconds (23.8-35.5)
[2018-09-14 18:10] LABS: ALBUMIN 3.7 g/dL (3.5-5.0); ALBUMIN/GLOBULIN RATIO 1.1 (0.8-2.0); ANION GAP 14.1 mmol/L (8-16); CALCIUM 9.5 mg/dL (8.4-10.2); CREATININE, SERUM 1.27 mg/dL (0.57-1.11); POTASSIUM 4.1 mmol/L (3.5-5.1)
[2018-09-14 18:17] LABS: CREATINE KINASE MB 3.8 ng/mL (0-5.0)
--- NOTE | 2018-09-14 18:55 | Diagnostic Imaging Report ---
EXAMINATION: CHEST 2 VIEWS INDICATION: ^ORDER PLACED BY ^[id number] ^[id number] ^Y COMPARISON: 08/30/2018 FINDINGS: PA and lateral views TUBES and LINES: None. LUNGS: Lungs are well inflated. There is no evidence of pneumonia or pulmonary edema. PLEURA: No pleural effusion or pneumothorax. HEART AND MEDIASTINUM: The cardiomediastinal silhouette is unremarkable. Unchanged mildly prominent hilar regions. BONES AND SOFT TISSUES: No acute osseous lesion. Degenerative changes of thoracic spine. Soft tissues are unremarkable. UPPER ABDOMEN: No free air under the diaphragm. IMPRESSION: No acute thoracic abnormality. Signed by: Dr. Sanju Gamez MD on 09/14/2018 6:52 PM
--- NOTE | 2018-09-14 19:15 | NUR ---
Walking rounds with PAPA Brian. Patient in no distress at this time.
[2018-09-14] MEDS ORDERED: ACETAMINOPHEN/CODEINE ELIX 120-12 MG/5 ML UDC NG ONE (19:45)
[2018-09-14] MEDS: SODIUM CHLORIDE 0.9% 1000ML 1,000 ML IV SCH (22:33)
[2018-09-14] MEDS: NICOTINE 14 MG/EA PATCH TOP SCH (23:38)
[2018-09-14] MEDS: CEFTRIAXONE SOD 1 GM VIAL IV SCH (23:38)
[2018-09-14 23:45] VITALS: BP 176/89
--- NOTE | 2018-09-14 23:45 | NUR ---
patient is a new admit that arrived via stretcher. patient is awake and talking. patient is on continuous monitoring of oxygen saturation. patient has been helped into the bed. bed is in lowest position and call miguel is within reach. will continue to monitor patient.
[2018-09-14 23:58] VITALS: BP 176/89
[2018-09-15] MEDS: IPRATROPIUM BROMIDE 0.02% 2.5 ML NEB NEB SCH ×4 (00:04→19:42)
[2018-09-15] MEDS: ALBUTEROL SULF 0.083% NEB SOLN 3 ML NEB NEB SCH ×6 (03:20→23:00)
[2018-09-15 04:00] VITALS: BP 161/78
--- NOTE | 2018-09-15 04:20 | NUR ---
Spoke with admitting MD regarding Normal Saline infusion. New orders received. Will continue to monitor patient.
--- NOTE | 2018-09-15 07:08 | NUR ---
pt alert and sitting upright in middle of bed, pt had no distress noted at this time. pt call light in reach will cont to monitor. no c/o pain when asked.
[2018-09-15 08:00] VITALS: BP 175/89
[2018-09-15] MEDS ORDERED: METHYLPREDNISOLONE SOD SUCC 125 MG/2ML VIAL IV SCH (09:00)
[2018-09-15] MEDS: CEFTRIAXONE SOD 1 GM VIAL IV SCH (10:00)
[2018-09-15] MEDS: CEFTRIAXONE SOD 1 GM/NS 50 ML 50 ML IV SCH ×2 (10:30→21:31)
[2018-09-15 12:06] VITALS: BP 188/91
[2018-09-15] MEDS: SODIUM CHLORIDE 0.9% 1000ML 1,000 ML IV SCH (15:43)
[2018-09-15 16:00] VITALS: BP 173/79
[2018-09-15] MEDS: GUAIFENESIN/DEXTROMETHORPHAN LIQD 5 ML UDC NG SCH ×3 (16:17→21:29)
[2018-09-15] MEDS: BENZONATATE 100 MG CAP PO SCH ×2 (16:17→20:57)
[2018-09-15] MEDS: FAMOTIDINE 20 MG TAB PO SCH (16:17)
[2018-09-15] MEDS ORDERED: METOPROLOL TARTRATE 25 MG TAB PO SCH (17:00)
[2018-09-15 19:00] VITALS: BP 173/79
[2018-09-15] MEDS ORDERED: ACETAMINOPHEN 325 MG TAB PO PRN (19:00)
--- NOTE | 2018-09-15 19:18 | NUR ---
REPORT GIVEN TO ONCOMING NURSE
--- NOTE | 2018-09-15 19:48 | History and Physical ---
PRIMARY CARE PHYSICIAN: None. CHIEF COMPLAINT: Cough and shortness of breath. HISTORY OF PRESENT ILLNESS: This is a 62-year-old woman with a history of cigarette use who continues to smoke half a pack of cigarettes per day, now developing shortness of breath and cough at home that prompted visit to the hospital. Does not have oxygen at home. Has been told she had COPD in the past. Recently treated for pneumonia. PAST MEDICAL HISTORY: Hypertension, bronchitis, cigarette use, diastolic congestive heart failure, chronic kidney disease stage 3, pneumonia, COPD. PAST SURGICAL HISTORY: Toe fracture, total knee replacement, tubal ligation, tonsillectomy, adenoidectomy. ALLERGIES: PER ELECTRONIC MEDICAL RECORD. FAMILY AND SOCIAL HISTORY: Patient is . She has 5 children. Smokes half a pack of cigarettes per day. No alcohol or illicits. MEDICATIONS: Per electronic medical record. REVIEW OF SYSTEMS: Denies any fever, chills, sweats, nausea, vomiting, diarrhea, headache, chest pain, leg pain, or vision changes. PHYSICAL EXAMINATION VITAL SIGNS: Reviewed. GENERAL: A tired-appearing woman, resting in bed. HEENT: Anicteric. CARDIOVASCULAR: Normal S1, S2. LUNGS: Markedly reduced breath sounds throughout. No wheezing. ABDOMEN: Soft, nontender, nondistended. EXTREMITIES: No edema. SKIN: Dry. PSYCHIATRIC: Flat affect. NEUROLOGIC: Alert and oriented x3, moving all extremities. LABS: Reviewed. ASSESSMENT: This is a 62-year-old woman with: 1. Acute exacerbation of chronic obstructive pulmonary disease. 2. Chronic kidney disease stage 3, which is at baseline. 3. Hypertension. 4. Morbid obesity, body mass index 42. 5. Cigarette abuse. 6. Diastolic congestive heart failure. PLAN 1. Continue treatment with antitussive medication, antihistamine, antibiotics, and steroids. 2. Will not go home tonight, will need to wean his oxygen before patient can be discharged home safely. 3. Encouraged to quit cigarette. Patient plans to quit cigarette on of this year. 4. Continue nicotine patch. 5. Continue antihypertensive medication. 6. Monitor fluid status. 7. May need 2D echocardiogram at some point. 1. Needs caloric restriction and weight loss. 2. Screen for diabetes. 3. Use heparin and Pepcid for prophylaxis. 4. Followup labs in the morning. Job#: [id number] ALEJANDRO
[2018-09-15 20:00] VITALS: BP 175/85
[2018-09-15] MEDS: LORATADINE 10 MG TAB PO SCH (20:57)
[2018-09-15] MEDS: METHYLPREDNISOLONE SOD SUCC 125 MG/2ML VIAL IV SCH (20:57)
[2018-09-15] MEDS: NICOTINE 14 MG/EA PATCH TOP SCH (21:29)
[2018-09-16] VITALS (8 sets, daily range): BP systolic 150–219; BP diastolic 74–107
[2018-09-16] MEDS: IPRATROPIUM BROMIDE 0.02% 2.5 ML NEB NEB SCH ×5 (02:30→23:58)
[2018-09-16] MEDS: ALBUTEROL SULF 0.083% NEB SOLN 3 ML NEB NEB SCH ×6 (02:30→23:58)
[2018-09-16] MEDS: METHYLPREDNISOLONE SOD SUCC 125 MG/2ML VIAL IV SCH ×2 (05:02→15:50)
[2018-09-16] MEDS: GUAIFENESIN/DEXTROMETHORPHAN LIQD 5 ML UDC NG SCH ×3 (05:07→22:55)
[2018-09-16 05:24] LABS: BASOPHILS % 0.1 % (0.0-1.0); EOSINOPHILS % 0.1 % (0.0-6.0); HEMATOCRIT 44.1 % (34.2-44.1); HEMOGLOBIN 13.9 g/dL (12.0-16.0); LYMPHOCYTES # (AUTO) 0.6 (1.0-3.2); LYMPHOCYTES % 4.6 % (18.0-39.1); MEAN CORPUSCULAR HEMOGLOBIN 29.1 pg (28-32); MEAN CORPUSCULAR HGB CONC 31.5 g/dL (31-35); MEAN CORPUSCULAR VOLUME 92.3 fL (81-99); MONOCYTES # (AUTO) 0.3 (0.2-0.8); MONOCYTES % 2.7 % (4.4-11.3); NEUTROPHILS # (AUTO) 11.5 (2.1-6.9); NEUTROPHILS % 91.3 % (38.7-80.0); PLATELET COUNT 127 x10e3/uL (140-360); RED BLOOD COUNT 4.78 x10e6/uL (3.6-5.1)
[2018-09-16 06:03] LABS: ANION GAP 15.2 mmol/L (8-16); CALCIUM 9.2 mg/dL (8.4-10.2); CREATININE, SERUM 1.31 mg/dL (0.57-1.11)
[2018-09-16 06:04] LABS: POTASSIUM 5.2 mmol/L (3.5-5.1)
[2018-09-16 06:43] LABS: ANISOCYTOSIS SLIGHT; LYMPHOCYTES % (MANUAL) 4 % (19-48); MONOCYTES % (MANUAL) 3 % (3.4-9.0); NEUTROPHILS % (MANUAL) 93 % (40-74); RBC MORPHOLOGY COMMENT ABNORMAL
[2018-09-16 06:44] LABS: PLATELET ESTIMATE SLIGHTLY DECREASED; PLATELET MORPHOLOGY COMMENT NORMAL
[2018-09-16] MEDS: FAMOTIDINE 20 MG TAB PO SCH ×2 (08:36→16:23)
[2018-09-16] MEDS: METOPROLOL TARTRATE 25 MG TAB PO SCH ×2 (08:36→17:51)
[2018-09-16] MEDS: HYDROCHLOROTHIAZIDE 25 MG TAB PO SCH (08:36)
[2018-09-16] MEDS: LORATADINE 10 MG TAB PO SCH (08:36)
[2018-09-16] MEDS: BENZONATATE 100 MG CAP PO SCH ×3 (08:37→21:14)
[2018-09-16] MEDS: LISINOPRIL 20 MG TAB PO SCH (08:37)
--- NOTE | 2018-09-16 08:37 | NUR ---
PT BP AT 219/107 MEDICATED ACCORDING TO NOV. WILL RECHECK
[2018-09-16] MEDS ORDERED: LISINOPRIL 20 MG TAB PO SCH (09:00)
[2018-09-16] MEDS ORDERED: AMLODIPINE BESYLATE 10 MG TAB PO SCH (09:00)
--- NOTE | 2018-09-16 09:50 | NUR ---
PT BP RECHECK AT 201/99. MD DR.JAMES DOUGLAS LEFT VM AWAITING CALL BACK. WILL CONTINUE TO MONITOR CLOSELY
[2018-09-16] MEDS: CEFTRIAXONE SOD 1 GM/NS 50 ML 50 ML IV SCH ×2 (09:57→22:55)
--- NOTE | 2018-09-16 10:10 | NUR ---
SPOKE TO NOTIFIED OF ELEVATED BP AT MANUAL AT 212/97 RECEIVED ORDERS, NOTIFIED RN TO RESUME CARE
[2018-09-16] MEDS ORDERED: HYDRALAZINE HCL 20 MG/ML VIAL IV PRN (10:15)
[2018-09-16] MEDS ORDERED: NIFEDIPINE CR 30 MG TAB PO SCH (10:15)
--- NOTE | 2018-09-16 10:27 | NUR ---
TRANSFERRED TO ROOM 111
--- NOTE | 2018-09-16 10:30 | NUR ---
RECEIVED PATIENT FROM OBSERVATION PATIENT AMBULATORY ARRIVE DIN WHEEL CHAIR ABLE TO TRANSFER FROM W/C TO BED AMBULATES INDEPENDENTLY STEADY GAIT. ALERT AND ORIENTED X3, VERBALIZING NEEDS, ORIENTED TO ROOM AND USE OF CALL LIGHT VERBALIZED UNDERSTANDING TO CALL WHEN NEEDING ASSISTANCE.
[2018-09-16] MEDS: HYDRALAZINE HCL 25 MG TAB PO SCH ×4 (13:18→22:55)
[2018-09-16] MEDS: SODIUM CHLORIDE 0.9% 1000ML 1,000 ML IV SCH (13:57)
--- NOTE | 2018-09-16 18:05 | NUR ---
placed call to Dr. Neville Santoyo, to report patient's elevated blood pressure 182/100 hr 76 apical wating for call back
--- NOTE | 2018-09-16 18:32 | NUR ---
called Dr. Santoyo made aware of patient's manual blood pressure 182/100 hr 76 received orders to increase Procardia to 60mg PO q12h and give first dose now.
--- NOTE | 2018-09-16 19:15 | NUR ---
HANDOFF REPORT TO ONCOMING NURSE DAPHNE MADE AWARE PATIENT'S DOSE OF PROCARDIA INCREASED TO 60MG PO Q 12H VERBALIZED UNDERSTANDING.
[2018-09-16] MEDS: NIFEDIPINE CR 30 MG TAB PO SCH ×2 (21:00→21:14)
[2018-09-16] MEDS: NICOTINE 14 MG/EA PATCH TOP SCH (22:00)
[2018-09-16] MEDS: METHYLPREDNISOLONE SOD SUCC 40 MG/ML VIAL IV SCH (22:55)
[2018-09-17] VITALS (8 sets, daily range): BP systolic 144–177; BP diastolic 70–86
[2018-09-17] MEDS: ALBUTEROL SULF 0.083% NEB SOLN 3 ML NEB NEB SCH ×6 (03:15→23:00)
[2018-09-17] MEDS: GUAIFENESIN/DEXTROMETHORPHAN LIQD 5 ML UDC NG SCH ×3 (06:05→22:40)
[2018-09-17] MEDS: METHYLPREDNISOLONE SOD SUCC 40 MG/ML VIAL IV SCH ×2 (06:05→21:02)
[2018-09-17] MEDS: HYDRALAZINE HCL 25 MG TAB PO SCH ×3 (06:05→22:41)
[2018-09-17 06:06] LABS: BASOPHILS % 0.2 % (0.0-1.0); HEMATOCRIT 47.1 % (34.2-44.1); HEMOGLOBIN 14.8 g/dL (12.0-16.0); LYMPHOCYTES # (AUTO) 0.6 (1.0-3.2); LYMPHOCYTES % 5.1 % (18.0-39.1); MEAN CORPUSCULAR HEMOGLOBIN 28.9 pg (28-32); MEAN CORPUSCULAR HGB CONC 31.4 g/dL (31-35); MONOCYTES # (AUTO) 0.3 (0.2-0.8); MONOCYTES % 2.1 % (4.4-11.3); NEUTROPHILS # (AUTO) 11.4 (2.1-6.9); NEUTROPHILS % 91.2 % (38.7-80.0); PLATELET COUNT 145 x10e3/uL (140-360); RED BLOOD COUNT 5.12 x10e6/uL (3.6-5.1); RED CELL DISTRIBUTION WIDTH 15.2 % (11.7-14.4)
[2018-09-17 06:34] LABS: ANION GAP 16.6 mmol/L (8-16); CALCIUM 9.6 mg/dL (8.4-10.2); CREATININE, SERUM 1.29 mg/dL (0.57-1.11); POTASSIUM 4.6 mmol/L (3.5-5.1)
[2018-09-17] MEDS: IPRATROPIUM BROMIDE 0.02% 2.5 ML NEB NEB SCH ×3 (07:30→21:00)
[2018-09-17] MEDS: HYDROCHLOROTHIAZIDE 25 MG TAB PO SCH (08:50)
[2018-09-17] MEDS: LISINOPRIL 20 MG TAB PO SCH (08:50)
[2018-09-17] MEDS: NIFEDIPINE CR 30 MG TAB PO SCH ×2 (08:50→21:03)
[2018-09-17] MEDS: FAMOTIDINE 20 MG TAB PO SCH ×2 (08:50→18:31)
[2018-09-17] MEDS: METOPROLOL TARTRATE 25 MG TAB PO SCH ×2 (08:50→18:31)
[2018-09-17] MEDS: BENZONATATE 100 MG CAP PO SCH ×3 (08:50→21:03)
[2018-09-17] MEDS: LORATADINE 10 MG TAB PO SCH (09:10)
--- NOTE | 2018-09-17 09:10 | NUR ---
Progress Note O/N; no events REVIEW OF SYSTEMS: Denies any fever, chills, sweats, nausea, vomiting, diarrhea, headache, chest pain, leg pain, or vision changes. PHYSICAL EXAMINATION VITAL SIGNS: Reviewed. GENERAL: A tired-appearing woman, resting in bed. HEENT: Anicteric. CARDIOVASCULAR: Normal S1, S2. LUNGS: Markedly reduced breath sounds throughout. No wheezing. ABDOMEN: Soft, nontender, nondistended. EXTREMITIES: No edema. SKIN: Dry. PSYCHIATRIC: Flat affect. NEUROLOGIC: Alert and oriented x3, moving all extremities. LABS: Reviewed. ASSESSMENT: This is a 62-year-old woman with: 1. Acute exacerbation of chronic obstructive pulmonary disease. 2. Chronic kidney disease stage 3, which is at baseline. 3. Hypertension. 4. Morbid obesity, body mass index 42. 5. Cigarette abuse. 6. Diastolic congestive heart failure. PLAN 1. Continue treatment with antitussive medication, antihistamine, antibiotics, and steroids. 2. Will not go home tonight, will need to wean his oxygen before patient can be discharged home safely. 3. Encouraged to quit cigarette. Patient plans to quit cigarette on of this year. 4. Continue nicotine patch. 5. Continue antihypertensive medication. 6. Monitor fluid status. 7. May need 2D echocardiogram at some point. 8. Needs caloric restriction and weight loss. 9. Screen for diabetes. 10. Use heparin and Pepcid for prophylaxis. 11. Followup labs in the morning. 09/16 cont care; recheck K; reduced lisinopril, increase BB; 09/17 HBA1C/ldl 5.7/, PreDm. reduce steroids Neville Santoyo MD, PhD.
[2018-09-17] MEDS: CEFTRIAXONE SOD 1 GM/NS 50 ML 50 ML IV SCH ×2 (11:00→22:42)
[2018-09-17] MEDS: SODIUM CHLORIDE 0.9% 1000ML 1,000 ML IV SCH (11:45)
--- NOTE | 2018-09-17 14:06 | NUR ---
SOCIAL WORK INITIAL ASSESSMENT Vending Machine Attendant to bedside to discuss plan of care with patient/family. CM/SW role and care transitions discussed. Anticipated discharge plan discussed along with duration of care. CM/SW discussed patients right to make decisions in care. CM/SW work hours given. Patient lives: IN HOME WITH ROOM MATE Admit/Transfer: VIA ED POA/Emergency contact: Current/Previous Home Health: NONE PCP/Follow-up Care: INFORMATION GIVEN FOR [facility] HAS SEEN [facility] IN PAST Current/Previous DME: NONE Other Services: NA Employment Status: [employer] Areas of Concerns: NEED RESOURCES- STILL HAS PACKET BUT WILL TAKE FOR HER ROOM MATE Referral Needs: GAVE PACKET OF INFORMATION WITH COMMUNITY RESOURCES FOR ASSISTANCE WITH LOW TO NO INCOME TO PATIENT. RESOURCES THAT PATIENT MAY BE ABLE TO FOLLOW UP UPON DISCHARGE. PT EDUCATED ON EACH RESOURCE AND UNDERSTANDING HOW TO FOLLOW UP TO SEE IF QUALIFIED FOR EACH RESOURCE. Education Needs: NA IMM/ABEL given and signed (if applicable): Goal for discharge: RETURN HOME INDEPENDENTLY CM/SW left business card at the bedside with contact information. Name and number was also written on the patients whiteboard. Patient verbalized understanding of discussion. CM will follow-up with ongoing discharge and transition of care needs.
[2018-09-17] MEDS: NICOTINE 14 MG/EA PATCH TOP SCH (22:00)
[2018-09-18] VITALS (7 sets, daily range): BP systolic 152–180; BP diastolic 70–90
[2018-09-18] MEDS: IPRATROPIUM BROMIDE 0.02% 2.5 ML NEB NEB SCH ×2 (02:00→07:00)
[2018-09-18] MEDS: ALBUTEROL SULF 0.083% NEB SOLN 3 ML NEB NEB SCH ×3 (02:00→10:31)
[2018-09-18] MEDS: GUAIFENESIN/DEXTROMETHORPHAN LIQD 5 ML UDC NG SCH ×2 (05:51→14:00)
[2018-09-18] MEDS: HYDRALAZINE HCL 25 MG TAB PO SCH ×2 (05:51→14:00)
--- NOTE | 2018-09-18 06:54 | NUR ---
REPORT GIVEN TO ONCOMING NURSE,WALKING ROUNDS MADE.PT RESTING IN BED WITH NO S/S OF DISTRESS.
[2018-09-18] MEDS ORDERED: CEFUROXIME250 MG PO (07:02)
[2018-09-18] MEDS ORDERED: NIFEDIPINE ER30 M1 PO (07:02)
[2018-09-18] MEDS ORDERED: HYDRALAZINE HCL25 MG PO (07:02)
[2018-09-18] MEDS ORDERED: PREDNISONE20 MG PO (07:02)
[2018-09-18] MEDS ORDERED: LORATADINE10 MG PO (07:02)
[2018-09-18] MEDS ORDERED: FAMOTIDINE20 MG PO (07:02)
[2018-09-18] MEDS ORDERED: LOPRESSOR25 MG PO (07:02)
[2018-09-18] MEDS ORDERED: TESSALON PERLE100 MG PO (07:02)
[2018-09-18] MEDS ORDERED: Guaifenesin/Dextromethorphan NG (07:02)
[2018-09-18] MEDS ORDERED: NICODERM CQ1 EAC1 TOP (07:02)
[2018-09-18] MEDS ORDERED: PROAIR HFA INH8.5 GM INH (07:04)
--- NOTE | 2018-09-18 07:05 | NUR ---
Discharge summary: Principal dx; ASSESSMENT: This is a 62-year-old woman with: 1. Acute exacerbation of chronic obstructive pulmonary disease. 2. Chronic kidney disease stage 3, which is at baseline. 3. Hypertension. 4. Morbid obesity, body mass index 42. 5. Cigarette abuse. 6. Diastolic congestive heart failure. Secondary Dx: 1.HTN cc and HPI; refer to H& Hospital course: ASSESSMENT: This is a 62-year-old woman with: 1. Acute exacerbation of chronic obstructive pulmonary disease. 2. Chronic kidney disease stage 3, which is at baseline. 3. Hypertension. 4. Morbid obesity, body mass index 42. 5. Cigarette abuse. 6. Diastolic congestive heart failure. PLAN 1. Continue treatment with antitussive medication, antihistamine, antibiotics, and steroids. 2. Will not go home tonight, will need to wean his oxygen before patient can be discharged home safely. 3. Encouraged to quit cigarette. Patient plans to quit cigarette on of this year. 4. Continue nicotine patch. 5. Continue antihypertensive medication. 6. Monitor fluid status. 7. May need 2D echocardiogram at some point. 8. Needs caloric restriction and weight loss. 9. Screen for diabetes. 10. Use heparin and Pepcid for prophylaxis. 11. Followup labs in the morning. 09/16 cont care; recheck K; reduced lisinopril, increase BB; 09/17 HBA1C/ldl 5.7/83, PreDm. reduce steroids d/c meds see nov d/c time.35mins dc condition: stable and improving f/u 1 week Neville Santoyo MD, PhD.
--- NOTE | 2018-09-18 07:50 | NUR ---
HOME O2 SAT EVAL DONE ON THIS PT. AMBULATING O2 SAT = 85%
--- NOTE | 2018-09-18 08:15 | NUR ---
assessment complete no distress noted, updated on poc voiced understanding, denies pain at this time, l ac 20g no ss of infiltration noted, no other co voiced call light in reach will continue to monitor Addendum: 09/18/18 at 0854 by Laura Sarah RN documented on wrong patient
[2018-09-18] MEDS: METHYLPREDNISOLONE SOD SUCC 40 MG/ML VIAL IV SCH (08:40)
[2018-09-18] MEDS: HYDROCHLOROTHIAZIDE 25 MG TAB PO SCH (08:40)
[2018-09-18] MEDS: METOPROLOL TARTRATE 25 MG TAB PO SCH (08:40)
[2018-09-18] MEDS: LISINOPRIL 20 MG TAB PO SCH (08:40)
[2018-09-18] MEDS: FAMOTIDINE 20 MG TAB PO SCH (08:40)
[2018-09-18] MEDS: BENZONATATE 100 MG CAP PO SCH ×2 (08:40→15:25)
[2018-09-18] MEDS: LORATADINE 10 MG TAB PO SCH (08:40)
--- NOTE | 2018-09-18 08:40 | NUR ---
assessment complete no distress noted updated on poc voiced understanding, denies pain at this time, o2 @ 3l nc, r ac 20g no ss of infiltration noted, no other co voiced call light in reach will continue to monitor
[2018-09-18] MEDS: NIFEDIPINE CR 30 MG TAB PO SCH (09:05)
--- NOTE | 2018-09-18 10:34 | NUR ---
PRICES FOR OXYGEN CONCENTRATOR 150.00 PER MONTH PORTABLE OXYGEN 20.00 PER TANK AND 35.00 [facility] [place] [id number] [facility] [id number] (ACROSS FROM [employer])
[2018-09-18] MEDS: CEFTRIAXONE SOD 1 GM/NS 50 ML 50 ML IV SCH (10:40)
--- NOTE | 2018-09-18 12:28 | NUR ---
MARY STRESSED THE IMPORTANCE OF PT GOING TO THE [facility] SOON POSSIBLE PT STATES SHE IS GOING TOMORROW ENCOURAGED PT TO TAKE NECESSARY FORMS GIVEN TO HER IN HER SELF PAY PACKET WITH HER TO THE CLINIC TOMORROW TO EXPEDITE PROCESS MARY COPIED GOOD RX PRESCRIPTIONS FOR EACH PRESCRIPTION WRITTEN BY DR ALMANZAR TODAY FAXED CLINICAL AND ORDERS FOR 02 TO [facility] PH [phone]; FAX [phone] CONFIRMATION REC'D PT SPOKE WITH MYRA AT [facility] AND GAVE CREDIT CARD INFORMATION 02 TO BE DELIVERED TO PT'S ROOM TODAY REMINDED PT THAT SELF PAY PACKET HAS MULTIPLE RESOURCES IN IT FOR UTILITIES, HOUSING AND FOOD PT HAS MY NAME AND NUMBER FOR QUESTIONS GEREMIAS BRISCOE AWARE OF ABOVE
--- NOTE | 2018-09-18 15:30 | NUR ---
PT PORTABLE HOME O2 DELIVERED TO PATIENT, PTS BIG CANISTER TO BE DELIVERED TO PTS HOME.
== END 2018-09-18 15:44 | disposition home or self-care (01) | DRG 190 ==
LOC: ER 17:03 → ERHOLD 22:09 → IMCU 09-15 00:06 → OBSVTOIN 09-16 06:38 → MED/SURG 09-16 10:36
PROVIDERS: ADMIT Internal Medicine; ATTEND Internal Medicine
DX: J44.1 Chronic obstructive pulmonary disease with (acute) exacerbation (principal); I50.33 Acute on chronic diastolic (congestive) heart failure; I13.0 Hypertensive heart and chronic kidney disease with heart failure and stage 1 through stage 4 chronic kidney disease, or unspecified chronic kidney disease; Z68.41 Body mass index [BMI] 40.0-44.9, adult; N18.3 Chronic kidney disease, stage 3 (moderate); J44.0 Chronic obstructive pulmonary disease with (acute) lower respiratory infection; J20.9 Acute bronchitis, unspecified; F17.210 Nicotine dependence, cigarettes, uncomplicated; E66.01 Morbid (severe) obesity due to excess calories; R73.03 Prediabetes
CPT/HCPCS: 36415; 71046; 80048; 80053; 80061; 82550; 82553; 83036; 83605; 83880; 84132; 84484; 85025; 85610; 85730; 87040; 87086; 93005; 94640; 99284; G0378; J0360; J0456; J0696; J2920; J2930; J7030

== ENCOUNTER → 2021-08-29 | Day surgery (SDC) | payer MEDICARE ==
[~2021-08-29] MED LIST changes: +ARICEPT5 MG PO; +ATORVASTATIN CA10 MG PO; +BUPROPION HCL100 MG PO; +BUSPIRONE HCL5 MG PO; +CEFUROXIME250 MG PO; +CLONAZEPAM0.5 MG PO; +ELIQUIS5 MG PO; +FAMOTIDINE20 MG PO; +FENTANYL CITRATE/PF 100MCG/2 ML INJ ONE; +FLUOXETINE HCL10 MG PO; +FUROSEMIDE40 MG PO; +Guaifenesin/Dextromethorphan NG; +HYDRALAZINE HC100 MG PO; +HYDRALAZINE HCL25 MG PO; +LISINOPRIL10 MG PO; +LORATADINE10 MG PO; +MELATONIN3 MG PO; +METOPROLOL TART25 MG PO; +MIDAZOLAM HCL 2 MG/2 ML VIAL ONE; +NEURONTIN300 MG PO; +NICODERM CQ1 EAC1 TOP; +NIFEDIPINE ER30 M1 PO; +NORVASC5 MG PO; +OR PHACO EYE KIT ONE; +PREDNISONE20 MG PO; +PREOP PHACO EYE KIT ONE; +PROAIR HFA INH8.5 GM INH; +TESSALON PERLE100 MG PO; +TRAZODONE HCL50 MG PO; +VIAMIN PO
[2021-08-29 11:24] VITALS: BP 163/76
== END | disposition home or self-care (01) ==
LOC: OR 08:05
PROVIDERS: ATTEND Ophthalmology
DX: H25.11 Age-related nuclear cataract, right eye (principal); H57.89 Other specified disorders of eye and adnexa; I48.91 Unspecified atrial fibrillation; I49.1 Atrial premature depolarization; I13.0 Hypertensive heart and chronic kidney disease with heart failure and stage 1 through stage 4 chronic kidney disease, or unspecified chronic kidney disease; N18.9 Chronic kidney disease, unspecified; I50.9 Heart failure, unspecified; E66.01 Morbid (severe) obesity due to excess calories; M19.90 Unspecified osteoarthritis, unspecified site; R53.1 Weakness; F03.90 Unspecified dementia, unspecified severity, without behavioral disturbance, psychotic disturbance, mood disturbance, and anxiety; H91.90 Unspecified hearing loss, unspecified ear; F32.A Depression, unspecified; F41.9 Anxiety disorder, unspecified; Z20.822 Contact with and (suspected) exposure to COVID-19; Z79.02 Long term (current) use of antithrombotics/antiplatelets; Z79.899 Other long term (current) drug therapy; Z68.41 Body mass index [BMI] 40.0-44.9, adult; Z86.73 Personal history of transient ischemic attack (TIA), and cerebral infarction without residual deficits
CPT/HCPCS: 66984; J2250; J3010; U0002; V2632